=== PATIENT | male | born 2000 | race Caucasian/White ===

== ENCOUNTER 2024-03-16 09:07 | Emergency (ER) | payer OTHER ==
[~2024-03-16] VITALS: Ht 170.2 cm; Wt 69.9 kg
[~2024-03-16 09:07] MED LIST: BUPRENORPHIN-N1 EACH SL
[2024-03-16] MEDS ORDERED: MIRTAZAPINE15 MG PO (09:14)
[2024-03-16] MEDS ORDERED: LITHIUM CARBON450 MG PO (09:14)
[2024-03-16 10:18] VITALS: BP 125/90
== END 2024-03-16 10:19 | disposition other institution, planned readmission (95) ==
LOC: ED 09:07
DX: T18.4XXA Foreign body in colon, initial encounter (principal); Z79.899 Other long term (current) drug therapy; W44.H0XA Other sharp object unspecified, entering into or through a natural orifice, initial encounter
CPT/HCPCS: 74018; 99283

== ENCOUNTER 2024-04-14 15:59 | Emergency (ER) | payer OTHER ==
[~2024-04-14] VITALS: Ht 170.2 cm; Wt 80.3 kg
[~2024-04-14 15:59] MED LIST changes: +LITHIUM CARBON450 MG PO; +MIRTAZAPINE15 MG PO
--- OUTSIDE RECORDS SUMMARY | 2024-04-14 16:02 | XMS ---
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 Garrick has no Care Guidelines for this patient. Andriy VISIT COUNT (12 MO.) [address] [facility] TOTAL 3 NOTE: Visits indicate total known visits. ED/C VISIT TRACKING (12 MO.) 04/14/2024 15:[address] [facility] [place] TYPE: Emergency COMPLAINT: - OD 03/16/2024 09:08 [facility] [place] TYPE: Emergency COMPLAINT: - FOREIGN OBJECT DIAGNOSES: - Foreign body in colon, initial encounter - Foreign body of alimentary tract, part unspecified, initial encounter - Other dedicated intermodal truck driver (current) drug therapy - Other sharp object unspecified, entering into or through a natural orifice, initial encounter 01/17/2024 15:46 [facility] [place] TYPE: Emergency COMPLAINT: - AMS DIAGNOSES: - Altered mental status, unspecified - Bizarre personal appearance - Encounter for other administrative examinations - Other dedicated intermodal truck driver (current) drug therapy - Other psychoactive substance abuse, uncomplicated INPATIENT VISIT TRACKING (12 MO.) No inpatient visits to display in this time frame [email or web address]
[2024-04-14 16:12] LABS: BASOPHILS 0.4 % (0-2); EOSINOPHILS 0.6 % (0-6); HEMATOCRIT 45.1 % (35.0-50.0); LYMPHOCYTES 10.9 % (24-44); MCH 28.4 (27-36); MCHC 33.3 g/dl (30-36); MCV 85.3 fl (81-99); MONOCYTES 5.2 % (0-12); NEUTROPHILS 82.9 % (39-80); PLATELET COUNT 244 K/uL (140-440); RBC 5.29 M/ul (4.3-5.7); RDW 13.7 (10.5-15.0)
[2024-04-14] MEDS ORDERED: LIDOCAINE 2% VISCOUS 6 ML SYR TOP ONE (16:15)
[2024-04-14 16:22] LABS: PROTIME 13.1 Sec (11.2-14.2)
[2024-04-14 16:35] LABS: ALBUMIN/GLOBULIN RATIO 1.21 (1.1-2.4); ALCOHOL, MEDICAL <3 ng/dL (<3); ALKALINE PHOSPHATASE 81 U/L (46-116); ALT (SGPT) 24 U/L (14-59); ANION GAP 12.3 (7-21); AST (SGOT) 18 U/L (15-37); BILIRUBIN, TOTAL 0.3 ng/dL (0.2-1.0); BUN/CREATININE RATIO 27.18 (6.0-28.6); CALCIUM 9.4 mg/dL (8.5-10.1); CARBON DIOXIDE 28 mmol/L (21-32); CHLORIDE 103 mmol/L (98-107); CREATININE, SERUM 1.03 mg/dL (0.70-1.30); GLOMERULAR FILTRATION RATE,EST 104 mL/min (>60); POTASSIUM 4.3 mmol/L (3.5-5.1); PROTEIN, TOTAL 7.3 g/dL (6.4-8.2); TSH, 3RD GENERATION 1.281 uIU/mL (0.358-3.740); UREA NITROGEN 28 mg/dL (7-18)
[2024-04-14 16:48] LABS: BILIRUBIN, URINE NEGATIVE (negative); BLOOD/HGB, URINE NEGATIVE (Negative); KETONE, URINE NEGATIVE (Negative); LEUK ESTERASE, URINE NEGATIVE (negative); NITRITE, URINE NEGATIVE (negative)
[2024-04-14 17:04] LABS: AMPHETAMINES, URINE NEGATIVE (NEGATIVE); BARBITURATES, URINE NEGATIVE (NEGATIVE); BENZODIAZEPINE, URINE NEGATIVE (NEGATIVE); BUPRENORPHINE, URINE POSITIVE (NEGATIVE); CANNABINOID, URINE NEGATIVE (NEGATIVE); COCAINE, URINE NEGATIVE (NEGATIVE); ECSTASY, URINE NEGATIVE (NEGATIVE); FENTANYL, URINE NEGATIVE (NEGATIVE); METHADONE, URINE NEGATIVE (NEGATIVE); OPIATES, URINE NEGATIVE (NEGATIVE); OXYCODONE, URINE NEGATIVE (NEGATIVE); PHENCYCLIDINE, URINE NEGATIVE (NEGATIVE)
[2024-04-14 18:38] LABS: ACETAMINOPHEN 0 ug/mL (10-30); SALICYLATE 1.3 mg/dL (2.8-20.0)
[2024-04-14 20:00] VITALS: BP 130/73
--- NOTE | 2024-04-17 17:05 | EKG ---
[facility] [address] [facility] [place] [address] Signed Normal sinus rhythm Normal ECG When compared with ECG of 17-JAN-2024 15:52, Questionable change in QRS axis Confirmed by Gianluca Tracey DO ([id number]) on 04/17/2024 5:05:25 PM Electronically Signed By: GIANLUCA TRACEY DO 04/17/24 170 PATIENT NAME: GEOFF MORELAND III Electrocardiogram DATE OF : [birth year] PHYSICIAN: GIANLUCA TRACEY DO REPORT #: [id number] REPORT IS CONFIDENTIAL AND NOT TO BE RELEASED WITHOUT AUTHORIZATION
== END 2024-04-14 20:00 | disposition other institution, planned readmission (95) ==
LOC: ED 15:59
PROVIDERS: Emergency Medicine
DX: R41.82 Altered mental status, unspecified (principal); Z79.899 Other long term (current) drug therapy
CPT/HCPCS: 36415; 51702; 70450; 71045; 80053; 80307; 81003; 82140; 84443; 85025; 85610; 93005; 93010; 99285; G0480